=== PATIENT | male | born 1955 | race Caucasian/White ===

== ENCOUNTER 2018-03-25 13:29 | Emergency (ER) | payer MEDICAID, OTHER ==
[~2018-03-25] VITALS: Ht 182.9 cm; Wt 96.4 kg
[2018-03-25 14:05] LABS: CLARITY,URINE CLEAR (Clear); COLOR,URINE STRAW (Yellow); GLUCOSE, URINE NEGATIVE (Neg); KETONES,URINE NEGATIVE (Neg); LEUKOCYTE ESTERASE ,URINE NEGATIVE (Neg); NITRITES, URINE NEGATIVE (Neg); OCCULT BLOOD,URINE NEGATIVE (Neg); PROTEIN,URINE NEGATIVE (Neg); UROBILINOGEN,URINE 0.2 E.U/dL (0.2-1.0)
[2018-03-25 14:05] LABS: BASOPHILS # (AUTO) 0.1 X10'3 (0-0.2); BASOPHILS % (AUTO) 0.8 % (0-1); EOSINOPHILS # (AUTO) 0.1 X10'3 (0-0.9); EOSINOPHILS % (AUTO) 1.1 % (0-6); HEMATOCRIT 48.6 % (42.0-52.0); HEMOGLOBIN 16.1 g/dl (14.0-17.9); LYMPHOCYTES # (AUTO) 3.2 X10'3 (1.1-4.8); LYMPHOCYTES % (AUTO) 42.3 % (21-51); MEAN CORPUSCULAR HEMOGLOBIN 30.8 PG (27.0-31.0); MEAN CORPUSCULAR HGB CONC 33.2 % (33.0-36.5); MEAN CORPUSCULAR VOLUME 92.7 FL (78-98); MEAN PLATELET VOLUME 7.3 FL (7.4-10.4); MONOCYTES # (AUTO) 0.6 X10'3 (0-0.9); MONOCYTES % (AUTO) 7.9 % (2-12); NEUTROPHILS # (AUTO) 3.6 X10'3 (1.8-7.7); NEUTROPHILS % (AUTO) 47.9 % (42-75); PLATELET COUNT 377 X10'3 (140-440); RED BLOOD COUNT 5.25 X10'6 (4.70-6.10); RED CELL DISTRIBUTION WIDTH 12.8 % (11.5-14.5); WHITE BLOOD COUNT 7.5 X10'3 (4.5-11.0)
[2018-03-25] MEDS ORDERED: ketorolac tromethamine 15mg/ml inj. IM ONE (14:05)
[2018-03-25 14:09] LABS: UA COLLECTION TYPE VOIDED
[2018-03-25 14:20] LABS: ALANINE AMINOTRANSFERASE 44 U/L (12-78); ALBUMIN 3.8 G/DL (3.4-5.0); ALBUMIN/GLOBULIN RATIO 1.1 (1.1-1.5); ALKALINE PHOSPHATASE 59 IU/L (46-116); ANION GAP 7 (8-16); ASPARTATE AMINO TRANSFERASE 27 U/L (10-37); BILIRUBIN,TOTAL 0.3 MG/DL (0.1-1.0); BLOOD UREA NITROGEN 19 MG/DL (7-18); BUN/CREATININE RATIO 18.3 (5.4-32.0); CALCIUM 8.8 MG/DL (8.5-10.1); CHLORIDE 102 MMOL/L (99-107); CREATININE 1.04 MG/DL (0.60-1.10); GLUCOSE 90 MG/DL (70-104); POTASSIUM 4.2 MMOL/L (3.5-5.1); SODIUM 141 MMOL/L (135-145); TOTAL CARBON DIOXIDE 31.6 MMOL/L (24-32); TOTAL PROTEIN 7.4 G/DL (6.4-8.2); eGFR 73 ML/MIN
[2018-03-25 14:29] LABS: PROTHROMBIN TIME 9.8 SECONDS (9.0-12.0)
--- NOTE | 2018-03-25 14:30 | NUR ---
ultrasound in progress
[2018-03-25 16:04] VITALS: BP 160/99
[2018-03-25] MEDS ORDERED: IBUP-1984 PO (16:33)
[2018-03-25] MEDS ORDERED: CYCL-1 PO (16:33)
[2018-03-25] MEDS ORDERED: cyclobenzaprine 10mg tablet PO ONE (16:35)
== END 2018-03-25 16:43 | disposition home or self-care (01) ==
LOC: ER 13:30
DX: S39.012A Strain of muscle, fascia and tendon of lower back, initial encounter (principal); Z79.899 Other long term (current) drug therapy; X58.XXXA Exposure to other specified factors, initial encounter; Y93.89 Activity, other specified; Y92.89 Other specified places as the place of occurrence of the external cause; Y99.8 Other external cause status
CPT/HCPCS: 36415; 74176; 76775; 80053; 81003; 85025; 85610; 96372; 99284; J1885

== ENCOUNTER 2018-05-16 21:17 | Emergency (ER) | payer MEDICAID ==
[~2018-05-16] VITALS: Ht 188 cm; Wt 96.0 kg
[~2018-05-16 21:17] MED LIST: CYCL-1 PO
[2018-05-16 22:22] VITALS: BP 133/87
[2018-05-16 23:42] LABS: D-DIMER 31.89 MG/L FEU (0-0.50)
[2018-05-19] MEDS ORDERED: PER5325T PO (16:04)
[2018-05-19] MEDS ORDERED: APIX5TAB3 PO (17:47)
== END 2018-05-16 23:32 | disposition home or self-care (01) ==
LOC: ER 21:17
DX: M79.662 Pain in left lower leg (principal); M79.661 Pain in right lower leg; G89.18 Other acute postprocedural pain; M25.511 Pain in right shoulder; Z98.890 Other specified postprocedural states
CPT/HCPCS: 36415; 85379; 99283

== ENCOUNTER → 2018-05-19 | Emergency (ER) | payer MEDICAID ==
[~2018-05-19] VITALS: Ht 185.4 cm; Wt 99.2 kg
[~2018-05-19] MED LIST changes: +APIX5TAB3 PO; +PER5325T PO; +apixaban 5mg tablet PO STA; +enoxaparin 100mg/ml syringe SUBCUT ONE
--- NOTE | 2018-05-19 15:55 | NUR ---
DR. JAMISON AT BEDSIDE.
[2018-05-19 16:25] LABS: BASOPHILS # (AUTO) 0.1 X10'3 (0-0.2); BASOPHILS % (AUTO) 0.8 % (0-1); EOSINOPHILS # (AUTO) 0.1 X10'3 (0-0.9); EOSINOPHILS % (AUTO) 1.1 % (0-6); HEMATOCRIT 43.4 % (42.0-52.0); HEMOGLOBIN 14.5 g/dl (14.0-17.9); LYMPHOCYTES # (AUTO) 1.7 X10'3 (1.1-4.8); LYMPHOCYTES % (AUTO) 22.5 % (21-51); MEAN CORPUSCULAR HEMOGLOBIN 30.6 PG (27.0-31.0); MEAN CORPUSCULAR HGB CONC 33.5 g/dL (33.0-36.5); MEAN CORPUSCULAR VOLUME 91.2 FL (78-98); MEAN PLATELET VOLUME 7.5 FL (7.4-10.4); MONOCYTES # (AUTO) 0.8 X10'3 (0-0.9); MONOCYTES % (AUTO) 11.4 % (2-12); NEUTROPHILS # (AUTO) 4.7 X10'3 (1.8-7.7); NEUTROPHILS % (AUTO) 64.2 % (42-75); PLATELET COUNT 241 X10'3 (140-440); RED BLOOD COUNT 4.76 X10'6 (4.70-6.10); WHITE BLOOD COUNT 7.4 X10'3 (4.5-11.0)
[2018-05-19 16:40] LABS: ALANINE AMINOTRANSFERASE 36 U/L (12-78); ALBUMIN 3.3 G/DL (3.4-5.0); ALBUMIN/GLOBULIN RATIO 0.8 (1.1-1.5); ALKALINE PHOSPHATASE 68 IU/L (46-116); ANION GAP 7 (8-16); ASPARTATE AMINO TRANSFERASE 20 U/L (10-37); BILIRUBIN,TOTAL 0.3 MG/DL (0.1-1.0); BLOOD UREA NITROGEN 18 MG/DL (7-18); BUN/CREATININE RATIO 20.9 (5.4-32.0); CALCIUM 9.3 MG/DL (8.5-10.1); CHLORIDE 104 MMOL/L (99-107); CREATININE 0.86 MG/DL (0.60-1.10); GLUCOSE 91 MG/DL (70-104); POTASSIUM 4.5 MMOL/L (3.5-5.1); SODIUM 140 MMOL/L (135-145); TOTAL CARBON DIOXIDE 29.1 MMOL/L (24-32); TOTAL PROTEIN 7.3 G/DL (6.4-8.2); eGFR 90 ML/MIN
[2018-05-19 17:10] LABS: TROPONIN I < 0.04 NG/ML (0.0-0.05)
[2018-05-19 18:00] VITALS: BP 140/90
== END | disposition home or self-care (01) ==
LOC: ER 13:29
DX: I82.431 Acute embolism and thrombosis of right popliteal vein (principal); Z98.890 Other specified postprocedural states
CPT/HCPCS: 36415; 80053; 83880; 84484; 85025; 93005; 93970; 96372; 99284; J1650